=== PATIENT | female | born 1950 | race Caucasian/White ===

== ENCOUNTER 2017-08-22 11:04 | Emergency (ER) | payer OTHER, MEDICAID ==
[2017-08-22 11:15] VITALS: BP 180/99; PULSE 60; RESP 17; TEMP 97.7; O2SAT 98
--- NOTE | 2017-08-22 11:44 | EDPHY ---
H & P Time Seen by Provider: 08/22/17 11:26 HPI/ROS: Chief complaint: Tooth pain History of present illness: This is a 67-year-old female who presents to the emergency department for evaluation of tooth pain. She reports pain in the right , upper aspect of the mouth. There is associated right maxillary sinus pain. She is concerned she is developing an infection. She has had problems with infections and this part of her mouth before. She has also had recurrent sinus infections. She denies precipitating factors. She denies alleviating or aggravating factors. She denies other associated signs or symptoms including no fevers, no swelling of the face or neck, no swelling of the throat, no difficulty talking, swallowing or breathing. She also checked her blood pressure today and noted it was elevated. This is concerning her. However she does not believe she was having any symptoms related this including no headache , no chest pain or trouble breathing, or pain or swelling in the legs, no difficulty going to the bathroom. She does not have a history of high blood pressure. Smoking Status: Never smoked Physical Exam: General: Alert, nontoxic Eyes: PERRLA Mouth: Good dental hygiene. No tenderness to percussion of any of the teeth. ENT: Tympanic membranes, external auditory canals, external ears and surrounding soft tissue including over the mastoids are unremarkable. Nasopharynx is not injected. There is no rhinorrhea. Oropharynx is not injected. There is no edema. There is no exudate. There is no asymmetry. The uvula is midline. No elevation of the tongue. There is no hoarseness, no drooling, no trismus, no stridor. Skin: No erythema or edema of the face or neck Constitutional: Initial Vital Signs Temperature (C) 36.5 C 08/22/17 11:11 Heart Rate 60 08/22/17 11:11 Respiratory Rate 17 08/22/17 11:11 Blood Pressure 180/99 H 08/22/17 11:11 O2 Sat (%) 98 08/22/17 11:11 O2 Delivery Mode Room Air Allergies/Adverse Reactions: penicillin V potassium [From Pen-Vee K] Allergy (Verified 08/22/17 11:11) Home Medications: Medication Instructions Recorded Clindamycin HCl [Clindamycin] 300 mg PO TID #21 cap 08/22/17 MDM/Departure - [facility] ED Course/Re-evaluation: Patient seen under the supervision of my primary supervising physician Dr. Irma Perrin. Patient presents to the emergency department for right upper tooth pain. She is nontoxic. She has a history of dental problems and sinus problems. She has an appointment with her dentist next week. I am concerned for developing infection. She has a severe allergic reaction to penicillins. I have discussed the pros and cons of antibiotic therapy and starting her on clindamycin which she was also on in July for similar. She would like to start antibiotic therapy. I have discussed the importance of taking a probiotic with the antibiotic. She is to follow up with her dentist and primary care doctor next week for recheck. In regards to her high blood pressure she does not have a history of high blood pressure. She is asymptomatic at this time. I have asked her to follow up with her primary care doctor for recheck of this. Return precautions are given. Patient voiced understanding and agreement with plan. Differential Diagnosis: Included but not limited to dental problems including periodontal abscess, sinus infection, TMJ - Depart Disposition: Home, Routine, Self-Care Clinical Impression: Pain, dental HTN (hypertension) Qualifiers: Hypertension type: unspecified Qualified Code(s): I10 - Essential (primary) hypertension Condition: Good Instructions: Dental Abscess (ED), Sinusitis (ED) Additional Instructions: Follow-up with her primary care doctor on Friday for recheck. Follow up with your dentist on Friday or Friday for recheck as well. Take antibiotics as prescribed, discuss their continued use with your doctor Take a probiotic with your antibiotic and for a few weeks after the antibiotic Have your doctors recheck your blood pressure If symptoms worsen or new symptoms develop return to the emergency room for recheck Prescriptions: Clindamycin HCl [Clindamycin] 300 mg PO TID #21 cap Referrals: POLLO CORDERO [Other] - As per Instructions
== END 2017-08-22 11:52 | disposition home or self-care (01) ==
DX: K08.89 Other specified disorders of teeth and supporting structures (principal); I10 Essential (primary) hypertension